=== PATIENT | male | born 1945 | race Caucasian/White ===

== ENCOUNTER 2018-08-13 12:56 | Day surgery (SDC) | payer MEDICARE ==
[~2018-08-13 12:56] MED LIST: ALBU90OI INH; AMLO5 PO; ASPI81CH PO; ASPI81EC PO; ATEN25 PO; Advil200 M1; Allergy Medicat25 MG; BUPR150ER PO; Diethylpropion75 MG; FENO160 PO; FISH1000; FISH1000 PO; FLUO20 PO; Flonase 0.05% N16 GM; GABA300 PO; HYDR1TAB94 PO; LEVITRA PO; MULTI VITAMIN1 EACH; MULVITMIND PO; NIAC500 PO; OMEP20ER; Omeprazole20 M1; Prinivil10 MG; QVAR7.3 G1 INH; RANI150 PO
[2018-08-14] MEDS ORDERED: ROXICODONE5 MG PO (13:38)
[2018-08-14] MEDS ORDERED: Ceftriaxone2 G1 IV (13:40)
== END 2018-08-13 14:07 | disposition home or self-care (01) ==
LOC: ATC 12:56
DX: T84.53XA Infection and inflammatory reaction due to internal right knee prosthesis, initial encounter (principal); M62.81 Muscle weakness (generalized); R26.2 Difficulty in walking, not elsewhere classified; I10 Essential (primary) hypertension; F33.1 Major depressive disorder, recurrent, moderate; J45.998 Other asthma; K21.0 Gastro-esophageal reflux disease with esophagitis; Z88.8 Allergy status to other drugs, medicaments and biological substances; Z79.899 Other long term (current) drug therapy
CPT/HCPCS: J0696

== ENCOUNTER 2018-08-14 13:06 | Day surgery (SDC) | payer MEDICARE ==
[2018-08-14] MEDS ORDERED: ROXICODONE5 MG PO (13:38)
[2018-08-14] MEDS ORDERED: Ceftriaxone2 G1 IV (13:40)
== END 2018-08-14 14:00 | disposition home or self-care (01) ==
LOC: ATC 13:06
DX: T84.53XA Infection and inflammatory reaction due to internal right knee prosthesis, initial encounter (principal); R26.2 Difficulty in walking, not elsewhere classified; M62.81 Muscle weakness (generalized); I10 Essential (primary) hypertension; F33.1 Major depressive disorder, recurrent, moderate; F43.12 Post-traumatic stress disorder, chronic; J45.998 Other asthma; K21.9 Gastro-esophageal reflux disease without esophagitis; Z79.899 Other long term (current) drug therapy
CPT/HCPCS: 96365; J0696

== ENCOUNTER 2018-08-16 07:26 | Day surgery (SDC) | payer MEDICARE ==
[~2018-08-16 07:26] MED LIST changes: +Ceftriaxone2 G1 IV; +ROXICODONE5 MG PO
== END 2018-08-16 14:13 | disposition home or self-care (01) ==
LOC: ATC 07:26
DX: T84.53XA Infection and inflammatory reaction due to internal right knee prosthesis, initial encounter (principal); R26.2 Difficulty in walking, not elsewhere classified; M62.81 Muscle weakness (generalized); I10 Essential (primary) hypertension; F33.1 Major depressive disorder, recurrent, moderate; F43.12 Post-traumatic stress disorder, chronic; J45.998 Other asthma; K21.9 Gastro-esophageal reflux disease without esophagitis; M15.0 Primary generalized (osteo)arthritis; Z79.899 Other long term (current) drug therapy
CPT/HCPCS: 96365; J0696

== ENCOUNTER 2018-08-17 00:18 | Day surgery (SDC) | payer MEDICARE | END 2018-08-17 14:13 | disposition home or self-care (01) | LOC: ATC 00:18 | DX: T84.53XA Infection and inflammatory reaction due to internal right knee prosthesis, initial encounter (principal); I10 Essential (primary) hypertension; K21.9 Gastro-esophageal reflux disease without esophagitis; F33.1 Major depressive disorder, recurrent, moderate; F43.12 Post-traumatic stress disorder, chronic; J45.998 Other asthma | CPT/HCPCS: 96365; J0696 ==

== ENCOUNTER 2018-08-18 00:12 | Day surgery (SDC) | payer MEDICARE | END 2018-08-18 14:23 | disposition home or self-care (01) | LOC: ATC 00:12 | DX: T84.53XA Infection and inflammatory reaction due to internal right knee prosthesis, initial encounter (principal); R26.2 Difficulty in walking, not elsewhere classified; M62.81 Muscle weakness (generalized); G89.29 Other chronic pain; F33.1 Major depressive disorder, recurrent, moderate; F43.12 Post-traumatic stress disorder, chronic; J45.998 Other asthma; K21.9 Gastro-esophageal reflux disease without esophagitis; M15.0 Primary generalized (osteo)arthritis | CPT/HCPCS: 96365; J0696 ==

== ENCOUNTER 2018-08-19 13:28 | Day surgery (SDC) | payer MEDICARE ==
[2018-08-19 14:11] LABS: BASOPHILS ABSOLUTE AUTO 0.06 K/mm3 (0.00-0.23); BASOPHILS PERCENT AUTO 1 % (0-2); EOSINOPHILS PERCENT AUTO 7 % (0-6); Hematocrit 40.3 % (37.0-53.0); Hemoglobin 12.7 g/dL (13.5-17.5); IMMATURE GRAN ABSOLUTE AUTO 0.02 K/mm3 (0.00-0.10); IMMATURE GRAN PERCENT AUTO 0 % (0-1); LYMPHOCYTES ABSOLUTE AUTO 1.69 K/mm3 (0.84-5.20); LYMPHOCYTES PERCENT AUTO 28 % (21-46); MONOCYTES ABSOLUTE AUTO 0.76 K/mm3 (0.16-1.47); MONOCYTES PERCENT AUTO 13 % (4-13); Mean Corpuscular HGB 29.1 pg (26.0-34.0); Mean Corpuscular HGB Conc 31.5 g/dL (31.5-36.5); Mean Platelet Volume 10.8 fL (9.1-12.4); NEUTROPHILS ABSOLUTE AUTO 3.11 K/mm3 (1.96-9.15); NEUTROPHILS PERCENT AUTO 52 % (41-73); Platelet Count 231 K/mm3 (150-400); RDW Coefficient Variation 13.1 % (11.7-14.2); Red Blood Cell Count 4.37 M/mm3 (4.30-5.90); White Blood Cell Count 6.04 K/mm3 (4.00-11.30)
[2018-08-19 14:14] LABS: Mean Corpuscular Volume 92 fL (80-100)
--- NOTE | 2018-08-19 14:16 | NUR ---
LABS DUE TODAY. LABS DRAWN FROM RIGHT AC PER HOSPITAL PROTOCOL.
[2018-08-19 14:48] LABS: Alanine Aminotransfer (ALT/SGP 22 U/L (12-78); Albumin, Blood 3.4 g/dL (3.4-5.0); Albumin/Globulin Ratio 1.1 (0.8-1.8); Alk Phos 102 U/L (50-136); Anion Gap 8 mmol/L (6-16); Aspartate Aminotrans (AST/SGOT 14 U/L (12-37); Bilirubin, Total 0.3 mg/dL (0.1-1.0); Blood Urea Nitrogen 17 mg/dL (8-24); Bun/Creatinine Ratio 20.8 (12.0-20.0); CO2, Blood 25 mmol/L (21-32); Calcium, Blood 9.5 mg/dL (8.5-10.1); Chloride, Blood 110 mmol/L (98-108); Creatinine, Blood 0.82 mg/dL (0.60-1.20); Globulin, Blood 3.2 g/dL (2.2-4.0); Glomerular Filtration Rate >60 (60-); Glucose, Blood 93 mg/dL (70-99); Potassium, Blood 4.2 mmol/L (3.5-5.5); Sodium, Blood 143 mmol/L (136-145); Total Protein, Blood 6.6 g/dL (6.4-8.2)
== END 2018-08-19 14:12 | disposition home or self-care (01) ==
LOC: ATC 13:28
PROVIDERS: Internal Medicine
DX: T84.53XA Infection and inflammatory reaction due to internal right knee prosthesis, initial encounter (principal); I10 Essential (primary) hypertension; K21.9 Gastro-esophageal reflux disease without esophagitis; F33.1 Major depressive disorder, recurrent, moderate; F43.12 Post-traumatic stress disorder, chronic; J45.998 Other asthma
CPT/HCPCS: 80053; 85025; 85651; 86140; 96365; J0696

== ENCOUNTER 2018-08-20 13:28 | Day surgery (SDC) | payer MEDICARE | END 2018-08-20 23:29 | disposition home or self-care (01) | LOC: ATC 13:28 | DX: T84.53XA Infection and inflammatory reaction due to internal right knee prosthesis, initial encounter (principal); I10 Essential (primary) hypertension; J45.998 Other asthma; K21.9 Gastro-esophageal reflux disease without esophagitis; F33.1 Major depressive disorder, recurrent, moderate; Z88.6 Allergy status to analgesic agent; Z79.899 Other long term (current) drug therapy | CPT/HCPCS: 96365; J0696 ==

== ENCOUNTER 2018-08-21 13:24 | Day surgery (SDC) | payer MEDICARE | END 2018-08-21 22:38 | disposition home or self-care (01) | LOC: ATC 13:24 | DX: T84.53XA Infection and inflammatory reaction due to internal right knee prosthesis, initial encounter (principal); I10 Essential (primary) hypertension; F33.1 Major depressive disorder, recurrent, moderate; F43.12 Post-traumatic stress disorder, chronic; K21.9 Gastro-esophageal reflux disease without esophagitis; J45.998 Other asthma | CPT/HCPCS: 96365; J0696 ==

== ENCOUNTER 2018-08-22 00:05 | Day surgery (SDC) | payer MEDICARE | END 2018-08-22 14:11 | disposition home or self-care (01) | LOC: ATC 00:05 | DX: T84.53XA Infection and inflammatory reaction due to internal right knee prosthesis, initial encounter (principal); I10 Essential (primary) hypertension; J45.998 Other asthma; F33.1 Major depressive disorder, recurrent, moderate; F43.12 Post-traumatic stress disorder, chronic; K21.9 Gastro-esophageal reflux disease without esophagitis | CPT/HCPCS: 96365; J0696 ==

== ENCOUNTER 2018-08-23 00:27 | Day surgery (SDC) | payer MEDICARE | END 2018-08-23 10:58 | disposition home or self-care (01) | LOC: ATC 00:27 | DX: T84.53XA Infection and inflammatory reaction due to internal right knee prosthesis, initial encounter (principal); I10 Essential (primary) hypertension; K21.9 Gastro-esophageal reflux disease without esophagitis; F33.1 Major depressive disorder, recurrent, moderate; F43.12 Post-traumatic stress disorder, chronic; J45.998 Other asthma | CPT/HCPCS: 96365; J0696 ==

== ENCOUNTER 2018-08-24 00:03 | Day surgery (SDC) | payer MEDICARE | END 2018-08-24 10:55 | disposition home or self-care (01) | LOC: ATC 00:03 | DX: T84.53XA Infection and inflammatory reaction due to internal right knee prosthesis, initial encounter (principal); M62.81 Muscle weakness (generalized); R26.2 Difficulty in walking, not elsewhere classified; I10 Essential (primary) hypertension; J45.998 Other asthma; F33.1 Major depressive disorder, recurrent, moderate; F43.12 Post-traumatic stress disorder, chronic; K21.9 Gastro-esophageal reflux disease without esophagitis; Z79.899 Other long term (current) drug therapy | CPT/HCPCS: 96365; J0696 ==

== ENCOUNTER 2019-09-06 10:08 | Day surgery (SDC) | payer MEDICARE ==
[~2019-09-06] VITALS: Ht 190.5 cm; Wt 124.7 kg
== END 2019-09-06 11:17 | disposition home or self-care (01) ==
LOC: ORSCSDS 10:08
PROVIDERS: Anesthesiology
PROC: 3E0R33Z Introduction of Anti-inflammatory into Spinal Canal, Percutaneous Approach (ICD-10-PCS; principal; 2019-09-06 11:00)
DX: M51.16 Intervertebral disc disorders with radiculopathy, lumbar region (principal); E66.9 Obesity, unspecified; Z68.34 Body mass index [BMI] 34.0-34.9, adult; Z79.899 Other long term (current) drug therapy
CPT/HCPCS: J1040

== ENCOUNTER 2019-11-09 09:32 | Emergency (ER) | payer MEDICARE ==
[~2019-11-09] VITALS: Ht 190.5 cm; Wt 123.4 kg
[2019-11-09 10:14] LABS: BASOPHILS ABSOLUTE AUTO 0.06 K/mm3 (0.00-0.23); BASOPHILS PERCENT AUTO 1 % (0-2); EOSINOPHILS ABSOLUTE AUTO 0.27 K/mm3 (0.00-0.68); EOSINOPHILS PERCENT AUTO 3 % (0-6); Hematocrit 48.7 % (37.0-53.0); Hemoglobin 15.6 g/dL (13.5-17.5); IMMATURE GRAN ABSOLUTE AUTO 0.12 K/mm3 (0.00-0.10); IMMATURE GRAN PERCENT AUTO 1 % (0-1); LYMPHOCYTES ABSOLUTE AUTO 4.11 K/mm3 (0.84-5.20); LYMPHOCYTES PERCENT AUTO 43 % (21-46); MONOCYTES ABSOLUTE AUTO 1.04 K/mm3 (0.16-1.47); MONOCYTES PERCENT AUTO 11 % (4-13); Mean Corpuscular HGB 30.4 pg (26.0-34.0); Mean Corpuscular Volume 95 fL (80-100); Mean Platelet Volume 11.4 fL (9.1-12.4); NEUTROPHILS ABSOLUTE AUTO 4.08 K/mm3 (1.96-9.15); NEUTROPHILS PERCENT AUTO 42 % (41-73); Platelet Count 190 K/mm3 (150-400); RDW Coefficient Variation 14.1 % (11.7-14.2); RDW Standard Deviation 49.6 fL (35.1-46.3); Red Blood Cell Count 5.13 M/mm3 (4.30-5.90); White Blood Cell Count 9.68 K/mm3 (4.00-11.30)
[2019-11-09 10:52] LABS: Troponin I <0.015 ng/mL (0.000-0.040)
[2019-11-09 10:54] LABS: Alanine Aminotransfer (ALT/SGP 26 U/L (12-78); Albumin, Blood 3.4 g/dL (3.4-5.0); Alk Phos 88 U/L (50-136); Anion Gap 7 mmol/L (6-16); Aspartate Aminotrans (AST/SGOT 15 U/L (12-37); Bilirubin, Total 0.6 mg/dL (0.1-1.0); Blood Urea Nitrogen 17 mg/dL (8-24); Bun/Creatinine Ratio 19.3 (12.0-20.0); CO2, Blood 23 mmol/L (21-32); Calcium, Blood 9.2 mg/dL (8.5-10.1); Chloride, Blood 110 mmol/L (98-108); Creatinine, Blood 0.88 mg/dL (0.60-1.20); Globulin, Blood 3.3 g/dL (2.2-4.0); Glomerular Filtration Rate >60 (60-); Glucose, Blood 140 mg/dL (70-99); Potassium, Blood 3.6 mmol/L (3.5-5.5); Sodium, Blood 140 mmol/L (136-145); Total Protein, Blood 6.7 g/dL (6.4-8.2)
[2019-11-09] MEDS ORDERED: Valium5 MG PO (13:32)
[2019-11-09] MEDS ORDERED: ONDA4ODT MM (13:32)
== END 2019-11-09 13:55 | disposition home or self-care (01) ==
LOC: ER 09:32
PROVIDERS: Emergency Medicine
DX: R42 Dizziness and giddiness (principal); R11.2 Nausea with vomiting, unspecified; I10 Essential (primary) hypertension; F32.9 Major depressive disorder, single episode, unspecified; K21.9 Gastro-esophageal reflux disease without esophagitis; Z88.8 Allergy status to other drugs, medicaments and biological substances; Z79.899 Other long term (current) drug therapy
CPT/HCPCS: 36415; 70496; 70498; 80053; 84484; 85025; 93005; 93010; 96374-59; 99284-25; A9270-GY; J2550; Q9967

== ENCOUNTER 2020-01-08 10:30 | Day surgery (SDC) | payer MEDICARE ==
[~2020-01-08] VITALS: Ht 190.5 cm; Wt 127.0 kg
[~2020-01-08 10:30] MED LIST changes: +ONDA4ODT MM; +Valium5 MG PO
[2020-01-08] MEDS ORDERED: MOTION RELIEF25 MG PO (11:05)
[2020-01-08] MEDS ORDERED: IBUP800 PO (11:05)
== END 2020-01-08 11:35 | disposition home or self-care (01) ==
LOC: ORSCSDS 10:30
PROVIDERS: Anesthesiology
PROC: 3E0R33Z Introduction of Anti-inflammatory into Spinal Canal, Percutaneous Approach (ICD-10-PCS; principal; 2020-01-08 11:30)
DX: M96.1 Postlaminectomy syndrome, not elsewhere classified (principal); M51.36 Other intervertebral disc degeneration, lumbar region; Z79.899 Other long term (current) drug therapy
CPT/HCPCS: J1040

== ENCOUNTER → 2020-01-09 | Outpatient (CLI) | payer MEDICARE ==
[~2020-01-09] MED LIST changes: +IBUP800 PO; +MOTION RELIEF25 MG PO
== END ==
LOC: LAB 10:48 → LAB SHORT 10:48
DX: D22.71 Melanocytic nevi of right lower limb, including hip (principal)
CPT/HCPCS: 88305

== ENCOUNTER 2020-11-01 10:17 | Day surgery (SDC) | payer MEDICARE ==
[~2020-11-01] VITALS: Ht 190.5 cm; Wt 122.5 kg
== END 2020-11-01 11:10 | disposition home or self-care (01) ==
LOC: ORSCSDS 10:17
DX: M96.1 Postlaminectomy syndrome, not elsewhere classified (principal); M54.16 Radiculopathy, lumbar region; M51.16 Intervertebral disc disorders with radiculopathy, lumbar region; Z79.899 Other long term (current) drug therapy
CPT/HCPCS: J1040

== ENCOUNTER 2020-12-03 07:19 | Day surgery (SDC) | payer MEDICARE ==
[~2020-12-03] VITALS: Ht 190.5 cm; Wt 121.2 kg
[~2020-12-03 07:19] MED LIST changes: +Aspir 8181 MG PO; +Norco 5-325 Ta1 EACH PO; +OMEPRAZOLE MAGN20 MG PO; +OXYC5 PO; +QVAR REDIHALE10.6 G3 INH; +VITAMIN D325 MC3 PO
--- NOTE | 2020-12-03 08:14 | NUR ---
12/03/20 0814 Tammy Flores PROPOFOL ADMINSTERED BY [email or web address]
== END 2020-12-03 09:05 | disposition home or self-care (01) ==
LOC: ORSCSDS 07:19
PROVIDERS: Surgery
PROC: 0DJD8ZZ Inspection of Lower Intestinal Tract, Via Natural or Artificial Opening Endoscopic (ICD-10-PCS; principal; 2020-12-03 08:30)
DX: Z12.11 Encounter for screening for malignant neoplasm of colon (principal); Z86.010 Personal history of colon polyps; K57.30 Diverticulosis of large intestine without perforation or abscess without bleeding; J45.909 Unspecified asthma, uncomplicated; E66.9 Obesity, unspecified; I10 Essential (primary) hypertension; K21.9 Gastro-esophageal reflux disease without esophagitis; Z68.33 Body mass index [BMI] 33.0-33.9, adult; Z79.899 Other long term (current) drug therapy
CPT/HCPCS: J2704; J7120

== ENCOUNTER 2021-08-08 12:23 | Day surgery (SDC) | payer MEDICARE ==
[~2021-08-08] VITALS: Ht 190.5 cm; Wt 120.2 kg
== END 2021-08-08 14:25 | disposition home or self-care (01) ==
LOC: ORSCSDS 12:23
PROVIDERS: Anesthesiology
PROC: 3E0R3BZ Introduction of Anesthetic Agent into Spinal Canal, Percutaneous Approach (ICD-10-PCS; principal; 2021-08-08 13:30)
DX: M96.1 Postlaminectomy syndrome, not elsewhere classified (principal); M54.16 Radiculopathy, lumbar region; I10 Essential (primary) hypertension; Z79.82 Long term (current) use of aspirin; Z79.899 Other long term (current) drug therapy
CPT/HCPCS: J1040

== ENCOUNTER 2022-12-07 10:41 | Day surgery (SDC) | payer MEDICARE ==
[2022-12-07] VITALS (18 sets, daily range): BP systolic 130–164; BP diastolic 80–96
[~2022-12-07] VITALS: Ht 190.5 cm; Wt 129.5 kg
[~2022-12-07 10:41] MED LIST changes: +FISH OIL 1,2001 EAC7 PO; -FISH1000; -MULTI VITAMIN1 EACH; +MULTI VITAMIN1 EACH PO; +OMEP20ER PO; +TAMS.4ER PO; +TURMERIC500 M2 PO
--- NOTE | 2022-12-07 16:58 | NUR ---
PT ARRIVED TO THE ROOM AT 1640. PT REPORTS PAIN AND NAUSEA, PLAN TO START PO MEDICATION AND PROVIDE MEDICATION FOR NAUSEA. PT IS ALERT AND ORIENTED. CALL LIGHT WITHIN REACH. PT ASSESSED FOR IGNITION SOURCES.
--- NOTE | 2022-12-07 19:54 | NUR ---
SHIFT SUMMARY PT IS POD#0 FROM L TKA WITH DR. BENOIT. PAIN MANAGED WITH PO PAIN MEDICATION. PT REQUIRED STRAIGHT CATH TO EMPTY BLADDER AFTER SURGERY; BLADDER SCAN SHOWED 600ML IN BLADDER, 650ML OUT. PT TOLERATING PO. REPORT GIVEN TO JAYLON JORGENSEN.
[2022-12-08 00:10] VITALS: BP 125/80
[2022-12-08 03:38] VITALS: BP 118/74
[2022-12-08 03:40] LABS: BASOPHILS ABSOLUTE AUTO 0.01 K/mm3 (0.00-0.23); BASOPHILS PERCENT AUTO 0 % (0-2); EOSINOPHILS PERCENT AUTO 0 % (0-6); Hematocrit 41.2 % (37.0-53.0); Hemoglobin 13.9 g/dL (13.5-17.5); IMMATURE GRAN ABSOLUTE AUTO 0.04 K/mm3 (0.00-0.10); IMMATURE GRAN PERCENT AUTO 0 % (0-1); LYMPHOCYTES ABSOLUTE AUTO 1.22 K/mm3 (0.84-5.20); LYMPHOCYTES PERCENT AUTO 9 % (21-46); MONOCYTES ABSOLUTE AUTO 0.83 K/mm3 (0.16-1.47); MONOCYTES PERCENT AUTO 6 % (4-13); Mean Corpuscular HGB 31.7 pg (26.0-34.0); Mean Corpuscular HGB Conc 33.7 g/dL (31.5-36.5); Mean Corpuscular Volume 94 fL (80-100); Mean Platelet Volume 11.1 fL (9.1-12.4); NEUTROPHILS ABSOLUTE AUTO 11.56 K/mm3 (1.96-9.15); NEUTROPHILS PERCENT AUTO 85 % (41-73); Platelet Count 166 K/mm3 (150-400); RDW Standard Deviation 44.9 fL (35.1-46.3); Red Blood Cell Count 4.38 M/mm3 (4.30-5.90); White Blood Cell Count 13.66 K/mm3 (4.00-11.30)
[2022-12-08 04:05] LABS: Bun/Creatinine Ratio 21.3 (12.0-20.0); Calcium, Blood 8.3 mg/dL (8.5-10.1); Creatinine, Blood 0.7 mg/dL (0.60-1.20); Magnesium, Blood 2.1 mg/dL (1.6-2.4); Potassium, Blood 4.4 mmol/L (3.5-5.5)
--- NOTE | 2022-12-08 05:41 | NUR ---
SHIFT SUMMARY A&O X4, VSS, ON RA, TOLERATING PO INTAKE, VOIDING WNL, SBA W/FWW, PAIN MANAGED PER EMAR, DRSG REMAINS C/D/I, RESTING QUIETLY AT THIS TIME, CALL LIGHT IN REACH.
[2022-12-08 07:35] VITALS: BP 125/69
[2022-12-08] MEDS ORDERED: ASPI81CH PO (08:39)
[2022-12-08] MEDS ORDERED: ACET500 PO (08:39)
[2022-12-08] MEDS ORDERED: OXYC5 PO (08:40)
--- NOTE | 2022-12-08 11:50 | NUR ---
DISCHARGE PT HAS CLEARED THERAPY. PAIN REASONABLY CONTROLLED. EATING, DRINKING, & VOIDING WELL. ALPHONSO & POLAR PACK SENT w/ PT. ESCORTED OUT VIA W/C.
== END 2022-12-08 11:51 | disposition home or self-care (01) ==
LOC: ORSCMMR 10:41 → ORD 12:00 → ORSCMMR 13:45 → ORD 13:45 → SURS 16:34 → ORSCMMR 12-08 11:51
PROVIDERS: Orthopaedic Surgery
PROC: 8E0Y0CZ Robotic Assisted Procedure of Lower Extremity, Open Approach (ICD-10-PCS; principal; 2022-12-07 13:45)
PROC: 0SRD0JA Replacement of Left Knee Joint with Synthetic Substitute, Uncemented, Open Approach (ICD-10-PCS; principal; 2022-12-07 13:45)
DX: M17.12 Unilateral primary osteoarthritis, left knee (principal); J45.909 Unspecified asthma, uncomplicated; I10 Essential (primary) hypertension; F32.A Depression, unspecified; K21.9 Gastro-esophageal reflux disease without esophagitis; Z79.899 Other long term (current) drug therapy; E66.9 Obesity, unspecified; Z68.35 Body mass index [BMI] 35.0-35.9, adult
CPT/HCPCS: 27447; 20985; S2900; 36415; 73560-LT; 80048; 83735; 85025; 94760; 97110; 97116; 97162; 97530; A9270; C1776; J0171; J0690; J0735; J1100; J1170; J2371; J2405; J2704; J2765; J2795; J3010; J7120

== ENCOUNTER → 2023-02-09 | Outpatient (CLI) | payer MEDICARE ==
[~2023-02-09] MED LIST changes: +ACET500 PO
== END ==
LOC: LAB SHORT 13:00 → LAB 13:00
DX: L57.0 Actinic keratosis (principal)
CPT/HCPCS: 88305

== ENCOUNTER 2025-01-23 14:02 | Day surgery (SDC) | payer MEDICARE ==
[~2025-01-23] VITALS: Ht 190.5 cm; Wt 132.0 kg
[2025-01-23] VITALS (9 sets, daily range): BP systolic 139–154; BP diastolic 83–97
[2025-01-23] MEDS ORDERED: CeFAZolin Sodium 3,000 MG in NS 100 ML IV SCH (14:30)
[2025-01-23] MEDS ORDERED: Tranexamic Acid 100 ML IV SCH (14:30)
[2025-01-23] MEDS ORDERED: LOSARTAN-HCTZ1 EACH PO (14:33)
[2025-01-23] MEDS ORDERED: VENL75ER PO (14:33)
[2025-01-23] MEDS ORDERED: IBUP800 PO (14:37)
[2025-01-23] MEDS ORDERED: Bupivacaine 0.5% W/EPI 1:200000 SDV 30 ML Vial ONE (15:15)
--- NOTE | 2025-01-23 15:24 | NUR ---
Pt to SDS via , accompanied by his daughter Antoinette. History, Chart, Medications and Allergies reviewed before start of procedure. Patient confirms NPO status and agrees with scheduled surgery. Pre-Op teaching done. Pt verbalizes understanding. Patient States Post-Procedure ride home has been arranged. Pt belongings placed underneath gurney for safekeeping. Pt glasses taken to PACU for safekeeping.
[2025-01-23] MEDS ORDERED: FentaNYL Citrate 50 MCG/ML 2 ML Injection ONE (15:27)
[2025-01-23] MEDS ORDERED: ePHEDrine Sulfate 50 MG/ML 1ML Injection ONE (16:03)
[2025-01-23] MEDS ORDERED: Ondansetron HCl 2 MG / ML 2ML Vial ONE (16:04)
[2025-01-23] MEDS ORDERED: Dexamethasone Sod Phos 10 MG/ML 1ML VIAL ONE (16:04)
[2025-01-23] MEDS ORDERED: Metoclopramide HCl 5MG / ML 2ML Vial IV PRN (16:05)
[2025-01-23] MEDS ORDERED: HYDROmorphone HCl/Pf 1MG SYR IV PRN (16:05)
[2025-01-23] MEDS ORDERED: FentaNYL Citrate 50 MCG/ML 2 ML Injection IV PRN ×3 (16:05→16:10)
[2025-01-23] MEDS ORDERED: Ondansetron HCl 2 MG / ML 2ML Vial IV PRN (16:10)
[2025-01-23] MEDS ORDERED: Ketorolac Tromethamine 30mg Vial ONE (17:29)
== END 2025-01-23 22:00 | disposition home or self-care (01) ==
LOC: ORSCMMR 14:02
PROVIDERS: Orthopaedic Surgery Sports Medicine
PROC: 0QSJ04Z Reposition Right Fibula with Internal Fixation Device, Open Approach (ICD-10-PCS; principal; 2025-01-23 15:30)
DX: S82.841A Displaced bimalleolar fracture of right lower leg, initial encounter for closed fracture (principal); I10 Essential (primary) hypertension; J45.909 Unspecified asthma, uncomplicated; F32.A Depression, unspecified; K21.9 Gastro-esophageal reflux disease without esophagitis; E66.9 Obesity, unspecified; R94.31 Abnormal electrocardiogram [ECG] [EKG]; S82.841D Displaced bimalleolar fracture of right lower leg, subsequent encounter for closed fracture with routine healing; Z68.36 Body mass index [BMI] 36.0-36.9, adult; Z79.899 Other long term (current) drug therapy; Z01.812 Encounter for preprocedural laboratory examination; Z01.810 Encounter for preprocedural cardiovascular examination
CPT/HCPCS: 36415; 80048; 85025; 93005; 93010; C1713; C1776; J0690; J1100; J1885; J2405; J2704; J3010; J7120